=== PATIENT | female | born 2000 | race Two or more races ===

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

== ENCOUNTER 2021-10-20 22:05 | Emergency (ER) | payer MEDICAID ==
[2021-10-20 22:43] LABS: BASOPHILS % (AUTO) 0.1 %; EOSINOPHILS # (AUTO) 0.1 10^3/uL (0.0-0.7); EOSINOPHILS % (AUTO) 1.1 %; LYMPHOCYTES # (AUTO) 2.4 10^3/uL (1.5-3.5); LYMPHOCYTES % (AUTO) 31.6 %; MEAN CORPUSCULAR HEMOGLOBIN 28.8 pg (27.0-31.0); MEAN CORPUSCULAR HGB CONC 33.3 g/dL (32.0-36.0); MEAN CORPUSCULAR VOLUME 86.4 fL (81.0-99.0); MEAN PLATELET VOLUME 10.7 fL (7.9-10.8); MONOCYTES # (AUTO) 0.5 10^3/uL (0.0-1.0); MONOCYTES % (AUTO) 6.5 %; NEUTROPHILS # (AUTO) 4.6 10^3/uL (1.5-6.6); NEUTROPHILS % (AUTO) 60.4 %; PLT - PLATELET COUNT 191 10^3/uL (130-450); RED BLOOD COUNT 4.86 10^6/uL (4.20-5.40); RED CELL DISTRIBUTION WIDTH 12.6 % (12.0-15.0); WHITE BLOOD COUNT 7.5 x10^3/uL (4.8-10.8)
[2021-10-20 22:54] LABS: ALBUMIN 3.9 g/dL (3.2-5.5); ALBUMIN/GLOBULIN RATIO 1.6 (1.0-2.2); BILIRUBIN,TOTAL 0.4 mg/dL (0.2-1.0); CALCIUM 8.5 mg/dL (8.5-10.3); CREATININE 0.7 mg/dL (0.4-1.0); POTASSIUM 3.7 mmol/L (3.5-5.0); TOTAL PROTEIN 6.4 g/dL (6.7-8.2)
--- NOTE | 2021-10-20 23:05 | ED Physician Documentation ---
PD HPI ABD PAIN - Stated complaint Stated Complaint: ABD PX - Chief complaint Chief Complaint: Abd Pain - History obtained from History obtained from: Patient - History of Present Illness Timing - onset: How many weeks ago (1) Timing - duration: Weeks (1) Timing - details: Waxing and waning Quality: Sharp, Pain Location: Other (right-sided/midline, predominantly lower but radiates to upper abdomen at times) Improved by: Other (no ameliorating factors) Worsened by: Palpation Associated symptoms: Nausea. No: Fever, Vomiting, Diarrhea, Constipation Similar symptoms before: Has not had sx before Recently seen: Not recently seen - Additional information Additional information: c/o 1 week of episodic abdominal pain, lower abdomen, predominantly right-sided with midline component , radiates to upper abdomen. Has not had thi pain before Review of Systems Constitutional: denies: Fever, Chills, Sweats Cardiac: reports: Reviewed and negative Respiratory: reports: Reviewed and negative GI: reports: Abdominal Pain, Nausea. denies: Abdominal Swelling, Vomiting, Constipation, Diarrhea, Hematemesis, Bloody / black stool : denies: Dysuria, Frequency, Now [facility] PAST MEDICAL HISTORY - Past Medical History Cardiovascular: None Respiratory: None Neuro: None Endocrine/Autoimmune: None GI: None DIRECTOR ELECTRONICS: None : None HEENT: None Psych: None Musculoskeletal: None Derm: None - Past Surgical History Past Surgical History: No - Present Medications Home Medications: Ambulatory Orders Medication Instructions Recorded Confirmed EPINEPHrine [Epipen 2-Carmine] 0.3 mg IJ ONCE PRN #1 unit 10/20/16 03/08/19 - Allergies Allergies/Adverse Reactions: Allergies Allergy/AdvReac Type Severity Reaction Status Date / Time ibuprofen Allergy Edema Verified 10/20/21 22:17 shellfish derived Allergy Edema Verified 10/20/21 22:17 - Social History Does the pt smoke?: No Smoking Status: Never smoker Does the pt drink ETOH?: No Does the pt have substance abuse?: No - Immunizations Immunizations are current?: Yes - POLST Patient has POLST: No PD ED PE NORMAL - Vitals Vital signs reviewed: Yes - General General: Alert and oriented X 3, No acute distress, Well developed/nourished - Cardiac Cardiac: RRR, No murmur - Respiratory Respiratory: No respiratory distress, Clear bilaterally - Abdomen Abdomen: Normal bowel sounds, Soft, Non distended, Other (mild TTP RLQ without rebound or guarding) - Back Back: No CVA TTP - Derm Derm: Normal color, Warm and dry Results - Vitals Vitals: Oxygen O2 Source Room air - Labs Labs: Laboratory Tests 10/20/21 10/20/21 10/20/21 22:30 22:30 23:25 WBC 7.5 RBC 4.86 Hgb 14.0 Hct 42.0 MCV 86.4 MCH 28.8 MCHC 33.3 RDW 12.6 Plt Count 191 MPV 10.7 Neut # (Auto) 4.6 Lymph # (Auto) 2.4 [place] # (Auto) 0.5 Eos # (Auto) 0.1 Baso # (Auto) 0.0 Absolute Nucleated RBC 0.00 Nucleated RBC % 0.0 Sodium 135 Potassium 3.7 Chloride 104 Carbon Dioxide 23 Anion Gap 8.0 BUN 11 Creatinine 0.7 Estimated GFR (MDRD) 107 Glucose 119 H Calcium 8.5 Total Bilirubin 0.4 AST 17 ALT 15 Alkaline Phosphatase 77 Total Protein 6.4 L Albumin 3.9 Globulin 2.5 Albumin/Globulin Ratio 1.6 Lipase 33 Urine Color YELLOW Urine Clarity CLEAR Urine pH 8.0 H Ur Specific [place] 1.020 Urine Protein NEGATIVE Urine Glucose (UA) NEGATIVE Urine Ketones NEGATIVE Urine Occult Blood NEGATIVE Urine Nitrite NEGATIVE Urine Bilirubin NEGATIVE Urine Urobilinogen 0.2 (NORMAL) Ur Leukocyte Esterase NEGATIVE Ur Microscopic Review NOT INDICATED Urine Culture Comments NOT INDICATED - Rads (name of study) CT A/P with IV contrast Radiology: Prelim report reviewed, See rad report PD MEDICAL DECISION MAKING - ED course Complexity details: reviewed results, re-evaluated patient, considered differential, d/w patient ED course: unremarkable CBC, ER abdominal panel, and UA. No diagnostic findings on CT A/P; incidental note of 4.5 cm left adnexal cystic structure (vs prominent sm. bowel segment). The CT finding is felt to be incidental, as pain c/o and PE does not correlate with left abd/pelvic symptoms. US not available at [facility] at this time, but given lack of elements of H+P to suggest that this finding is other than incidental, can be reevaluated in outpatient setting. Results d/w patient including CT findings, recommend f/u for reevaluation of symptoms as well as reevaluation of the CT findings. Return precautions discussed. Departure - Departure Disposition: Home, Self Care Clinical Impression: Abdominal pain Qualifiers: Abdominal location: lower abdomen, unspecified Qualified Code(s): R10.30 - Lower abdominal pain, unspecified Condition: Good Instructions: ED Abdominal Pain Female Non-Specific Abdominal Pain Comments: The results of tonight's tests do not reveal the source of your symptoms. There appears to be a left-sided ovarian cyst but , as we discussed, this does not seem a likely source given that your pain is more diffuse and seems worse on the right than the left. You might need further testing, such as an ultrasound to better characterize the finding on the CT. Follow up with your primary care provider, next available appointment Forms: Activity restrictions Discharge Date/Time: 10/21/21 01:53
[2021-10-20] MEDS ORDERED: IOVERSOL 320 100 ML VIAL IVP ONE (23:28)
[2021-10-20 23:38] LABS: BILIRUBIN,URINE NEGATIVE (NEGATIVE); CLARITY,URINE CLEAR (CLEAR); GLUCOSE, URINE (UA) NEGATIVE (NEGATIVE); KETONES,URINE (UA) NEGATIVE (NEGATIVE); LEUKOCYTE ESTERASE, URINE NEGATIVE (NEGATIVE); NITRITE,URINE NEGATIVE (NEGATIVE); OCCULT BLOOD,URINE NEGATIVE (NEGATIVE); PROTEIN,URINE NEGATIVE (NEGATIVE); UROBILINOGEN,URINE 0.2 (NORMAL) E.U./dL (NORMAL)
--- NOTE | 2021-10-21 00:44 | CT Report ---
PROCEDURE: Abdomen/Pelvis W INDICATIONS: RLQ abd. pain CONTRAST: IV CONTRAST: Optiray 320 ml: 80 PO CONTRAST: *NO PO CONTRAST TECHNIQUE: After the administration of intravenous contrast, 5 mm thick sections acquired from the diaphragms to the symphysis. 5 mm thick coronal and sagittal reformats were acquired. For radiation dose reducti on, the following was used: automated exposure control, adjustment of mA and/or kV according to lj ent size. COMPARISON: None. FINDINGS: Image quality: Excellent. ABDOMEN: Lung bases: Lung bases are clear. Heart size is normal. Solid organs: Evaluation of the liver demonstrates no focal hepatic lesions. Gallbladder appears wit hin normal limits without calcified gallstones. Biliary system is non dilated. The spleen is normal in size. Pancreas enhances normally without peripancreatic fat stranding or fluid collections. No ad renal nodules. Kidneys demonstrate no hydronephrosis. Peritoneum and bowel: Evaluation limited by paucity of intra-abdominal fat and absence of oral contr ast. Bowel loops demonstrate normal wall thickness and caliber. No definite evidence of appendicitis. There is a small amount of free fluid in the pelvis which appears within physiologic limits. No free air. Nodes and vessels: No retroperitoneal or mesenteric adenopathy by size criteria. Aorta and inferior vena cava are normal in size. Miscellaneous: No ventral hernias. PELVIS: Genitourinary: The bladder is partially distended. There is a small amount of high density in the tejas dder consistent with early excretion of contrast. There is a suspected left adnexal cyst measuring up to 4.5 cm. Miscellaneous: No inguinal hernias or adenopathy. Bones: No suspicious bony lesions. No vertebral body compression fractures. IMPRESSION: 1. Limited study due to paucity of intra-abdominal fat and absence of oral contrast. 2. No definite evidence of appendicitis. 3. Suspected left adnexal cyst measuring up to 4.5 cm versus prominent segment of small bowel. Consid er further evaluation with pelvic ultrasound if clinically indicated Reviewed by: Josh Segura MD on 10/21/2021 12:43 AM PDT Approved by: Josh Segura MD on 10/21/2021 12:43 AM PDT Station ID: [id number]
[2021-10-21] MEDS ORDERED: IOVERSOL 320 100 ML VIAL IVP ONE (00:58)
[2021-10-21 01:53] VITALS: BP 102/68
== END 2021-10-21 01:53 | disposition home or self-care (01) ==
LOC: ED 22:05
DX: R10.30 Lower abdominal pain, unspecified (principal)
CPT/HCPCS: 36415; 74177; 80053; 81003; 83690; 85025; 99282; 99284; Q9967; 81001; 87086